=== PATIENT | male | born 1970 | race African-American/Black ===

== ENCOUNTER 2021-05-16 22:44 | Emergency (ER) | payer MEDICAID ==
[~2021-05-16] VITALS: Ht 185.4 cm; Wt 82.0 kg
[2021-05-16] MEDS ORDERED: VISCOUS LIDOCAINE 2% 15 ML UDC PO STA (23:09)
[2021-05-16] MEDS ORDERED: ONDANSETRON 4MG ODT PO STA (23:09)
[2021-05-16] MEDS ORDERED: MAGNESIUM/ALUMINUM HYDROXIDE/SIMETHICONE 30ML UDC PO STA (23:09)
[2021-05-16 23:21] LABS: CLARITY URINE CLEAR (CLEAR); COLOR URINE YELLOW (YELLOW); KETONES URINE NEGATIVE (NEGATIVE); LEUKOCYTE ESTERASE URINE NEGATIVE (NEGATIVE); NITRITE URINE NEGATIVE (NEGATIVE); OCCULT BLOOD URINE NEGATIVE (NEGATIVE); PROTEIN URINE NEGATIVE (NEGATIVE)
[2021-05-16 23:51] LABS: EOSINOPHILS % 0.4 % (0.0-5.0); HEMATOCRIT. 36.7 % (42.0-52.0); HEMOGLOBIN. 12.5 g/dL (14.0-18.0); MEAN CORPUSCULAR HEMOGLOBIN 31.6 pg (28.0-32.0); MEAN CORPUSCULAR VOLUME 92.8 fL (80.0-94.0); MEAN PLATELET VOLUME 7.4 fl (7.4-10.4); MONOCYTES % 9.1 % (2.0-8.0); NEUTROPHILS % 53.5 % (40.0-76.0); PLATELET 136 x1000/uL (130-400); RED BLOOD CELL COUNT 3.96 mill/uL (4.7-6.1); RED CELL DISTRIBUTION WIDTH 16.8 % (11.6-14.6)
[2021-05-16 23:59] LABS: CHLORIDE 109 mEq/L (98-107)
[2021-05-17 00:40] LABS: ETHANOL BLOOD 401 mg/dL
[2021-05-17 05:30] VITALS: BP 122/59
== END 2021-05-17 05:59 | disposition home or self-care (01) ==
LOC: ER 22:44
DX: F10.229 Alcohol dependence with intoxication, unspecified (principal); Y90.8 Blood alcohol level of 240 mg/100 ml or more; R03.0 Elevated blood-pressure reading, without diagnosis of hypertension; I45.10 Unspecified right bundle-branch block
CPT/HCPCS: 36415; 80053; 80320; 81003; 82962; 85025; 93005; 99285; Q0162; G0480